=== PATIENT | female | born 1960 | race Caucasian/White ===

== ENCOUNTER 2025-06-30 18:49 | Inpatient (IN) | payer MEDICARE, OTHER, SELFPAY ==
[2025-06-30] VITALS (22 sets, daily range): BP systolic 69–123; BP diastolic 23–73; BMI 23.4; BMI 24.3
--- NOTE | 2025-06-30 14:19 | EDRN ---
Ru PINO in room w/ pt.
--- NOTE | 2025-06-30 14:25 | ED.GENMED ---
History of Present Illness
<Cuong Berrios PA-C - Last Filed: 06/30/25 21:24>
General
Chief Complaint: Blood Pressure Problem
Time Seen by Provider: 06/30/25 14:17
History of Present Illness
History of Present Illness:
64-year-old female with history of breast cancer currently on chemo and radiation treatments presents to the emergency department for evaluation of intractable nausea vomiting and diarrhea beginning last night associated with hypotension. Patient
arrived for her radiation appointment this morning where she was noted to be hypotensive and lethargic and thus sent to the ED. She has had intermittent vomiting and diarrhea during her chemo sessions typically controlled with Zofran, her last
chemo session was last week. She denies any abdominal pain or fevers at this time. No hematemesis or hematochezia.
Past History
<Cuong Berrios PA-C - Last Filed: 06/30/25 21:24>
Past History
ED Past Medical History: Cancer, HTN, Other and Other
ED Past Surgical History: and Other
Social History
Tobacco: Non-smoker
Alcohol: Occasional
Personal:
Living: with family
Employment: Disabled
Family History
Family History: Other (brother w/ stroke and early demise)
Review of Systems
<Cuong Berrios PA-C - Last Filed: 06/30/25 21:24>
Review of Systems
Allergies reviewed?: Yes
All Other Systems: ROS reviewed and negative except as documented in HPI and ROS
Phy Exam
<EV Fuentes Last Filed: 06/30/25 21:24>
Physical Exam
Physical Exam:
GEN: Chronically ill-appearing, no distress
HEENT: Oral mucosa moist, no scleral icterus
Cardiac: Regular rate
Lung: No respiratory distress, no tachypnea
Abdomen: Soft, grossly nontender
MSK: No gross deformity or injuries
Skin: Good color, no pallor or jaundice, no rashes
Neuro: AO x3, moves all extremities freely
Psych: Calm, cooperative
Course
<Cuong Berrios PA-C - Last Filed: 06/30/25 21:24>
Orders/Labs/Results
Orders:
Orders
06/30/25 Breakfast
Clear Liquid
At Your Request: Full Participation
06/30/25 14:23
0.9% Sodium Chloride 1000 ml [Nss] 1,000 ml IV BOLUS
Ondansetron Injectable [Zofran] 4 mg IV NOW STA
06/30/25 14:37
COVID-19 Antigen Urgent
Source: Nasal Swab
Influenza A+B Rapid Molecular Urgent
AURELIANO Source: Nasal Swab
Specimen Description:
06/30/25 14:45
Complete Blood Count/With Diff Urgent
Comprehensive Metabolic Panel Urgent
Ferritin Urgent
Comment: ADD ON
Folate Urgent
Comment: ADD ON
Iron Urgent
Comment: ADD ON
Lipase Urgent
Manual Differential Urgent
Total Iron Binding Urgent
Comment: ADD ON
Vitamin B12 Urgent
Comment: ADD ON
06/30/25 16:30
0.9% Sodium Chloride 1000 ml [Nss] 1,000 ml IV BOLUS
06/30/25 17:35
Midodrine [ProAmatine] 5 mg PO NOW STA
06/30/25 17:36
Lactated Ringers [Lr] 500 ml IV 150 mls/hr
06/30/25 18:03
Norovirus by PCR Urgent
AURELIANO Source: Feces/Stool
Specimen Description:
Date Specimen was Collected: 07/01/25
Time Specimen was Collected: 10:38
STOOL [C difficile Antigen & Toxins] Urgent
AURELIANO Source: Feces/Stool
Specimen Description:
Date Specimen was Collected: 07/01/25
Time Specimen was Collected: 10:38
Stool Culture Urgent
AURELIANO Source: Feces/Stool
Specimen Description:
Date Specimen was Collected: 07/01/25
Time Specimen was Collected: 10:38
06/30/25 18:04
Admit/Transfer Patient As Directed
Co-Sign Provider:
Level of Care: Inpatient admission
Assign to:: Telemetry
Physician / Group: Htay
Diagnosis: Vomting/Diarrhea, Hypotension
Reason for Telemetry: Arrhythmia
Date to Stop Telemetry: 07/03/25
Time to Stop Telemetry: 11:00
Reason for Hospitalization: IVF
Expected length of stay greater than two midnights?: Yes
ELOS- Estimated Length of Stay in days: 3
I certify the patient meets the requirements for IP care: Yes
PRN Pain Medication Management As Directed
May give lesser potent ordered pain med per pt: Yes
preference::
Protocol:: Medication orders for pain may be administered in a
manner that supports deferring to patient preference
when the pt is:
- Requesting an ordered lesser potent pain medication.
Least to most potent pain medications are defined
as: acetaminophen < NSAID < tramadol < opioids
(morphine, oxycodone, hydromorphone).
- Requesting a lesser dose of the same medication IF
ORDERED.
- Requesting a less intrusive route of administration
if both routes are prescribed by the provider (PO <
IV).
06/30/25 18:05
Code Status As Directed
Resuscitation Status: Full Code
06/30/25 18:11
Add On- LAB Routine
Tests Added?: iron, ferritin, tibc, folate, vit b12
06/30/25 20:09
0.9% Sodium Chloride 1000 ml [Nss] 1,000 ml IV 100 mls/hr
Acetaminophen [Tylenol] 650 mg PO Q4HPRN PRN
Midodrine [ProAmatine] 5 mg PO Q4HPRN PRN
Ondansetron Injectable [Zofran] 4 mg IV Q6HPRN PRN
06/30/25 20:09
Activity As Directed
Activity Level: Out of Bed- Chair
With Assistance
Advance Diet as Tolerated As Directed
Goal Diet: Low Residue
I&O [Intake/ Output] As Directed
Frequency: q12h
Vital Signs As Directed
Frequency: q4h
DX Deep Vein Thrombosis Video Routine
07/01/25 06:05
Basic Metabolic Panel IN AM
Complete Blood Count/No Diff IN AM
Magnesium IN AM
07/01/25 18:00
Enoxaparin Sodium [Lovenox] 40 mg SC QPM
Abnormal Lab Results
06/30/25
14:45
RBC 2.75 L 10^6/uL
(4.20-5.40)
Hgb 9.3 L g/dL
(12.0-16.0)
Hct 27.8 L %
(37.0-47.0)
MCV 101.1 H fL
(81.0-99.0)
MCH 33.8 H pg
(27.0-31.0)
RDW 16.2 H %
(11.5-14.5)
Abs Immat Gran (auto) 1.0 H 10^3/uL
(0-0.05)
Absolute Lymphs (auto) 1.0 L 10^3/uL
(1.2-3.4)
Absolute Monos (auto) 1.0 H 10^3/uL
(0.1-0.6)
Immature Gran % 20.8 H %
(0-0.5)
Monocytes % 20.4 H %
(1.7-9.3)
Segmented Neutrophils 26 L %
(42-75)
Band Neutrophils 7 H %
(0-3)
Monocytes (Manual) 27 H %
(2-9)
Sodium 131 L mmol/L
(135-145)
TIBC 196 L ug/dl
(265-497)
Ferritin 632.0 H ng/ml
(11.1-264.0)
Total Protein 5.9 L g/dl
(6.3-8.2)
Albumin 3.3 L g/dl
(3.5-5.0)
Vitamin B12 > 1000 H pg/ml
(239-931)
06/30/25 14:45
06/30/25 14:45
Vital Signs
Initial and Last Documented VS:
Initial Vital Signs
Temp Pulse Resp BP Pulse Ox
98.3 F 95 18 81/45 99
06/30/25 14:20 06/30/25 14:20 06/30/25 14:20 06/30/25 14:20 06/30/25 14:20
Last Documented Vital Signs
Temp Pulse Resp BP Pulse Ox
98.1 F 94 16 97/49 94
07/01/25 11:22 07/01/25 11:22 07/01/25 11:22 07/01/25 11:22 07/01/25 11:22
<José Luis Ames MD - Last Filed: 07/01/25 13:19>
Orders/Labs/Results
Orders:
Orders
06/30/25 Breakfast
Clear Liquid
At Your Request: Full Participation
06/30/25 14:23
0.9% Sodium Chloride 1000 ml [Nss] 1,000 ml IV BOLUS
Ondansetron Injectable [Zofran] 4 mg IV NOW STA
06/30/25 14:37
COVID-19 Antigen Urgent
Source: Nasal Swab
Influenza A+B Rapid Molecular Urgent
AURELIANO Source: Nasal Swab
Specimen Description:
06/30/25 14:45
Complete Blood Count/With Diff Urgent
Comprehensive Metabolic Panel Urgent
Ferritin Urgent
Comment: ADD ON
Folate Urgent
Comment: ADD ON
Iron Urgent
Comment: ADD ON
Lipase Urgent
Manual Differential Urgent
Total Iron Binding Urgent
Comment: ADD ON
Vitamin B12 Urgent
Comment: ADD ON
06/30/25 16:30
0.9% Sodium Chloride 1000 ml [Nss] 1,000 ml IV BOLUS
06/30/25 17:35
Midodrine [ProAmatine] 5 mg PO NOW STA
06/30/25 17:36
Lactated Ringers [Lr] 500 ml IV 150 mls/hr
06/30/25 18:03
Norovirus by PCR Urgent
AURELIANO Source: Feces/Stool
Specimen Description:
Date Specimen was Collected: 07/01/25
Time Specimen was Collected: 10:38
STOOL [C difficile Antigen & Toxins] Urgent
AURELIANO Source: Feces/Stool
Specimen Description:
Date Specimen was Collected: 07/01/25
Time Specimen was Collected: 10:38
Stool Culture Urgent
AURELIANO Source: Feces/Stool
Specimen Description:
Date Specimen was Collected: 07/01/25
Time Specimen was Collected: 10:38
06/30/25 18:04
Admit/Transfer Patient As Directed
Co-Sign Provider:
Level of Care: Inpatient admission
Assign to:: Telemetry
Physician / Group: Htay
Diagnosis: Vomting/Diarrhea, Hypotension
Reason for Telemetry: Arrhythmia
Date to Stop Telemetry: 07/03/25
Time to Stop Telemetry: 11:00
Reason for Hospitalization: IVF
Expected length of stay greater than two midnights?: Yes
ELOS- Estimated Length of Stay in days: 3
I certify the patient meets the requirements for IP care: Yes
PRN Pain Medication Management As Directed
May give lesser potent ordered pain med per pt: Yes
preference::
Protocol:: Medication orders for pain may be administered in a
manner that supports deferring to patient preference
when the pt is:
- Requesting an ordered lesser potent pain medication.
Least to most potent pain medications are defined
as: acetaminophen < NSAID < tramadol < opioids
(morphine, oxycodone, hydromorphone).
- Requesting a lesser dose of the same medication IF
ORDERED.
- Requesting a less intrusive route of administration
if both routes are prescribed by the provider (PO <
IV).
06/30/25 18:05
Code Status As Directed
Resuscitation Status: Full Code
06/30/25 18:11
Add On- LAB Routine
Tests Added?: iron, ferritin, tibc, folate, vit b12
06/30/25 20:09
0.9% Sodium Chloride 1000 ml [Nss] 1,000 ml IV 100 mls/hr
Acetaminophen [Tylenol] 650 mg PO Q4HPRN PRN
Midodrine [ProAmatine] 5 mg PO Q4HPRN PRN
Ondansetron Injectable [Zofran] 4 mg IV Q6HPRN PRN
06/30/25 20:09
Activity As Directed
Activity Level: Out of Bed- Chair
With Assistance
Advance Diet as Tolerated As Directed
Goal Diet: Low Residue
I&O [Intake/ Output] As Directed
Frequency: q12h
Vital Signs As Directed
Frequency: q4h
DX Deep Vein Thrombosis Video Routine
07/01/25 06:05
Basic Metabolic Panel IN AM
Complete Blood Count/No Diff IN AM
Magnesium IN AM
07/01/25 18:00
Enoxaparin Sodium [Lovenox] 40 mg SC QPM
Abnormal Lab Results
06/30/25
14:45
RBC 2.75 L 10^6/uL
(4.20-5.40)
Hgb 9.3 L g/dL
(12.0-16.0)
Hct 27.8 L %
(37.0-47.0)
MCV 101.1 H fL
(81.0-99.0)
MCH 33.8 H pg
(27.0-31.0)
RDW 16.2 H %
(11.5-14.5)
Abs Immat Gran (auto) 1.0 H 10^3/uL
(0-0.05)
Absolute Lymphs (auto) 1.0 L 10^3/uL
(1.2-3.4)
Absolute Monos (auto) 1.0 H 10^3/uL
(0.1-0.6)
Immature Gran % 20.8 H %
(0-0.5)
Monocytes % 20.4 H %
(1.7-9.3)
Segmented Neutrophils 26 L %
(42-75)
Band Neutrophils 7 H %
(0-3)
Monocytes (Manual) 27 H %
(2-9)
Sodium 131 L mmol/L
(135-145)
TIBC 196 L ug/dl
(265-497)
Ferritin 632.0 H ng/ml
(11.1-264.0)
Total Protein 5.9 L g/dl
(6.3-8.2)
Albumin 3.3 L g/dl
(3.5-5.0)
Vitamin B12 > 1000 H pg/ml
(276-931)
06/30/25 14:45
06/30/25 14:45
Vital Signs
Initial and Last Documented VS:
Initial Vital Signs
Temp Pulse Resp BP Pulse Ox
98.3 F 95 18 81/45 99
06/30/25 14:20 06/30/25 14:20 06/30/25 14:20 06/30/25 14:20 06/30/25 14:20
Last Documented Vital Signs
Temp Pulse Resp BP Pulse Ox
98.1 F 94 16 97/49 94
07/01/25 11:22 07/01/25 11:22 07/01/25 11:22 07/01/25 11:22 07/01/25 11:22
<Cuong Berrios PA-C - Last Filed: 06/30/25 21:24>
MDM/Problems Addressed
MDM/Problems Addressed:
Due to persistent hypotension patient will be admitted to the hospital, do not feel vasopressors IV are needed at this time and will begin midodrine
<Cuong Berrios PA-C - Last Filed: 06/30/25 21:24>
*Pulse Oximetry
Patient hypoxic: no
*Critical Care Note
Total Time (30-74mins, 75-104mins- exclusive of procedures): Not Applicable
ED Attending Note
<Cuong Berrios PA-C - Last Filed: 06/30/25 21:24>
-
Portions of this chart may have been created with voice recognition software.� Occasional wrong word or��sound alike� substitutions may have occurred due to the inherent limitations of voice recognition software.
<José Luis Ames MD - Last Filed: 07/01/25 13:19>
ED Attending Note
Patient seen and examined by attending physician: Yes
ED Attending Note:
Patient with history of breast cancer, status post last chemo treatment 1 week ago, presents ED secondary to multiple episodes of vomiting and diarrhea over the past 24 hours, along with dizziness, weakness, and confusion. Patient denies fever or
chills. Denies coughing. Denies abdominal pain. Denies chest pain. Patient does report decreased appetite. Patient has had weight loss recently. Denies headache. Denies loss of sensation or weakness.
Physical Exam
General: mild distress, not acutely ill. afebrile. weak appearing. hypotensive
Head: nc/at. eomi
Neck: supple. normal range of motion
Heart: s1/s2 regular rate and rhythm
Lungs: no acute respiratory distress. clear bilaterally
Abdomen: normal bowel sounds. not tender.
Neuro: alert and oriented x 3. no focal neurological deficits
Skin: no rash
Psychiatric: well kept. interactive and cooperative
Extremities: no edema. no calf tenderness.
Patient with persistent hypotension despite multiple boluses of IV fluids. In light of patient's ongoing symptoms along with hypotension despite treatment, patient will be admitted for further evaluation and treatment, including continual IV
hydration.
Discharge Plan
Departure
Patient Disposition: Admit
Date of Disposition: 06/30/25
Time of Disposition: 17:37
Admit to: IMU
Presentation/result/management discussed w/ accepting MD/DO: Hospitalist
Discharge Problem:
Acute hypotension
Interventions
Interventions:
*General Assessment Last Done: 06/30/25 18:57
*Neglect/Abuse Screening Last Done: 06/30/25 14:20
*ED COVID-19 Vaccine History Last Done: 07/01/25 01:40
*ED Influenza Vaccine History Last Done: 06/30/25 14:20
[facility] Risk Assessment Tool Last Done: 06/30/25 14:32
*Risk Screen - Suicide (C-SSRS) Last Done: 06/30/25 14:20
*Nursing Disposition Last Done: 06/30/25 20:01
ED- Cardiac Assessment Last Done: 06/30/25 14:40
ED- Neurological Assessment Last Done: 06/30/25 14:40
ED- Pulmonary Assessment Last Done: 06/30/25 14:40
Discharge Date and Time
Discharge Date/Time: 06/30/25 20:11
[2025-06-30] MEDS: NSS 1000 IV ×3 (14:46→21:36)
[2025-06-30] MEDS: ZOFRAN 4 MG IV (14:53)
[2025-06-30 14:58] LABS: Hematocrit 27.8 % (37.0-47.0); Hemoglobin 9.3 g/dL (12.0-16.0); Mean Corp Hgb Conc. 33.5 g/dL (33.0-37.0); Mean Corpuscular Volume 101.1 fL (81.0-99.0); Nucleated Red Blood Cells % 0.8 %; Platelet Count 151 10^3/uL (130-400); Red Cell Dist. Width 16.2 % (11.5-14.5)
[2025-06-30 15:04] LABS: COVID-19 Antigen Negative (Negative)
[2025-06-30 15:10] LABS: ALT (SGPT) 27 U/L (0-35); AST (SGOT) 21 U/L (14-36); Albumin 3.3 g/dl (3.5-5.0); Alkaline Phosphatase 124 U/L (38-126); Blood Urea Nitrogen 12 mg/dl (7-17); Calcium 8.8 mg/dl (8.4-10.2); Carbon Dioxide 27 mmol/L (22-30); Chloride 99 mmol/L (98-107); Estimated Creatinine Clearance 55 ml/min; Glucose 97 mg/dl (70-99); Lipase 23 U/L (23-300); Potassium 3.7 mmol/L (3.5-5.1); Sodium 131 mmol/L (135-145); Total Protein 5.9 g/dl (6.3-8.2); eGFR > 60.00
--- NOTE | 2025-06-30 15:24 | EDRN ---
Ru PINO in room w/pt.
--- NOTE | 2025-06-30 15:27 | EDRN ---
ED VAT EMILY Mo was just TT'd about IV access as was just noted as infiltrated.
--- NOTE | 2025-06-30 15:37 | EDRN ---
Chely SIMMONS VAT RN down and restarted IV access at this time in L FA w/ IV fluids restarted at this time. Pt stated no lymph nodes removed on R side so BP on R at this time. Pt also stated only partial mastectomy/lumpectomy on her R side.
[2025-06-30 16:26] LABS: Total Cells Counted 100
[2025-06-30 16:27] LABS: Absolute Neutrophils -Man Diff 1.6 10^3/uL (1.4-6.5); Anisocytosis 1+; Macrocytosis 1+; Normal RBC Morphology No; Platelets Checked Yes; Polychromasia 1+; Stomatocytes 2+
--- NOTE | 2025-06-30 17:44 | EDRN ---
Dr. Ames was in to see pt.
--- NOTE | 2025-06-30 17:47 | HPS.HSE ---
Family Physician
-
Family Physician: INTERVIEWE UNKNOWN - PT NOT
Chief Complaint
-
Vomiting and Diarrhea with Low Blood Pressure
History of Present Illness
Patient is a 64 y/o female past medical history of breast cancer who presents with vomiting, diarrhea and low blood pressure. Patient reports acute onset of vomiting and diarrhea that began last night. She reports symptoms were nonstop for several
hours. Today she had a radiation mapping appointment and while driving here she noted she felt confused. Upon arrival she states she was unable to stand the desk to check in and had to sit down. She reports feeling lightheaded. She denies
hematemesis or hematochezia.
Medical History
Past Medical History
Past Medical History: Reports Other
Additional Past Medical History:
Breast Cancer
Pulmonary Embolism
Hyperlipidemia
Migraine Headaches
Nephrolithiasis
Past Surgical History: Reports Other
Additional Past Surgical History:
Bilateral Lumpectomy (Left September 2015, Right Feb 2025)
Left Hand Reconstruction
Right Foot ORIF
Cystoscopy / Stone Extraction
Section
Sinus Surgery
Social History
Tobacco: Non-smoker
Alcohol: None
Family History
Family History: Other (Mother, Father and Brother with Lung Cancer)
Allergies / Home Medications
Allergies reflects when Allergies were last updated in [facility].
Home Medications with original date entered in [facility]
Allergy/Medication List:
Allergies
Allergy/AdvReac Type Severity Reaction Status Date / Time
Penicillins Allergy Unknown Verified 09/10/18 16:28
prochlorperazine (From Allergy Tongue Verified 09/10/18 16:28
Compazine) Swelling
prochlorperazine edisylate Allergy Unknown Verified 09/10/18 16:28
(From Compazine)
prochlorperazine maleate Allergy Unknown Verified 09/10/18 16:28
(From Compazine)
Sulfa (Sulfonamide Allergy Hives Verified 09/10/18 16:28
Antibiotics)
Home Medications
Miralax 2 tab PO DAILYPRN PRN constipation 06/30/25
atorvastatin 40 mg tablet 40 mg PO DAILY 06/30/25
diphenhydramine 25 mg-acetaminophen 500 mg tablet (Tylenol PM Extra Strength) 2 tab PO HS PRN sleep 06/30/25
diphenoxylate-atropine 2.5 mg-0.025 mg tablet 1 tab PO Q6HPRN PRN diarrhea 06/30/25
lorazepam 0.5 mg tablet 0.5 mg PO DAILY PRN anxiety 06/30/25
omeprazole 40 mg capsule,delayed release 40 mg PO DAILY 06/30/25
ondansetron HCl 8 mg tablet 8 mg PO Q8H PRN nausea/vomiting 06/30/25
Review of Systems
-
A 12 point ROS was completed and negative except as noted: Yes
Constitutional: Denies Fever
Respiratory: Denies Cough or Trouble Breathing
Cardiac: Denies Chest Pain
Physical Exam
Vital Signs
Vital Signs
Temp Pulse Resp BP Pulse Ox
98.3 F 94 19 96/73 93
06/30/25 14:20 06/30/25 17:45 06/30/25 17:45 06/30/25 17:40 06/30/25 17:45
Physical Exam
General: Comfortable and Conversant
HEENT: Anicteric and Moist mucous membranes
Respiratory: Clear and Non Labored Respirations
Cardiac: S1/S2 and Regular Rhythm
GI: Soft and Tender (Mild throughout without rebound or guarding)
Rectal: Deferred by Provider
Musculoskeletal: No Clubbing and No Cyanosis
Skin: Warm and Dry
Neuro: Awake, Alert, Oriented and Nonfocal/grossly intact
Psych: Calm
Laboratory Results
-
06/30/25 14:45
06/30/25 14:45
Laboratory Results
Total Bilirubin 1.3 mg/dl (0.2-1.3) 06/30/25 14:45
AST 21 U/L (14-36) 06/30/25 14:45
ALT 27 U/L (0-35) 06/30/25 14:45
Alkaline Phosphatase 124 U/L (38-126) 06/30/25 14:45
Lipase 23 U/L (23-300) 06/30/25 14:45
Data Reviewed
-
Lab Data: Labs Reviewed by me
Impression/Plan
-
Hypotension secondary to GI losses
-Continue IVFs
-Patient given one dose of midodrine in ED for hypotension, will continue PRN
Vomiting / Diarrhea, suspect related to chemotherapy vs viral gastroenteritis
-Allow clear liquids
-Check stool studies
Breast Cancer
-Initial diagnosis 2015 s/p left lumpectomy, chemotherapy and radiation
-Recent diagnosis Feb 2025 s/p right lumpectomy, currently receiving chemotherapy and scheduled to start radiation
-Last chemotherapy Jun 23
Macrocytic Anemia, likely chemo related
-Check iron, ferritin, TIBC and folic acid
Hyperlipidemia
-Continue atorvastatin
DVT proph: Lovenox
Code Status: Full Code
[2025-06-30] MEDS: LR 500 IV (17:55)
--- NOTE | 2025-06-30 17:55 | EDRN ---
Nellie Bates PA in to see pt at this time.
[2025-06-30 18:33] LABS: Iron 70 ug/dl (37-170)
--- NOTE | 2025-06-30 18:37 | W.PN.UPDATE ---
Update Note
Progress Note Update
This note serves as an addendum to the H&P by feller operator Halley MORRIS
HPI
64 F HX breast cancer
pw vomiting, diarrhea and low blood pressure
- acute onset of vomiting and diarrhea that began last night and persistent
- Today she had a radiation mapping appointment and while driving here she noted she felt confused.
- Upon arrival she states she was unable to stand the desk to check in and had to sit down.
- reports feeling lightheaded.
- denies hematemesis or hematochezia.
PHX
Breast Cancer s/p Bilateral Lumpectomy (Left September 2015, Right Feb 2025)
Pulmonary Embolism
Migraine Headaches
Nephrolithiasis
Left Hand Reconstruction
Right Foot ORIF
Cystoscopy / Stone Extraction
Section
Relevant VS
Temp Pulse Resp BP Pulse Ox
98.3 F 96 18 118/54 96
06/30/25 14:20 06/30/25 18:20 06/30/25 18:20 06/30/25 18:20 06/30/25 18:20
PE
Gen: Not toxic
HEENT: anicteric
Neck: supple
Lungs: CTA
Cor: RRR S1 S2
Abdomen:�Soft and Tender mild throughout without rebound or guarding
COMMUNITY ARTIST: NFND
MS:no edema
Relevant Data
06/30/25
14:45
WBC 5.0
Hgb 9.3 L
Plt Count 151
Sodium 131 L
Creatinine 0.8
eGFR > 60.00
ASSESSMENT & PLAN
Hypotension due to vol, contraction dehydration due to acute GI losses s/p chemo
- supportive care with IVF
- one dose of midodrine in ED for hypotension, will continue PRN
Vomiting / Diarrhea, suspect related to chemotherapy vs viral gastroenteritis
- Check stool studies
- Clear and ADAT
Breast Cancer HX
-Initial diagnosis 2015 s/p left lumpectomy, chemotherapy and radiation
-Recent diagnosis Feb 2025 s/p right lumpectomy, currently receiving chemotherapy and scheduled to start radiation
-Last chemotherapy Jun 23
DVT LMWH Px:
Code: Full
IP MS
[2025-06-30 18:42] LABS: Total Iron Binding Capacity 196 ug/dl (265-497)
[2025-06-30 19:06] LABS: Ferritin 632.0 ng/ml (11.1-264.0)
[2025-06-30 19:37] LABS: Folate 3.8 ng/ml (2.76-20); Vitamin B12 > 1000 pg/ml (239-931)
[2025-06-30] MEDS: KCL 160 MEQ IV (19:49)
[2025-06-30 20:24] LABS: Magnesium 1.7 mg/dl (1.6-2.3); Potassium 3.7 mmol/L (3.5-5.1)
[2025-06-30] MEDS: TYLENOL 650 MG PO (20:40)
[2025-06-30] MEDS: ATIVAN 0.5 MG PO (21:47)
[2025-07-01] MEDS: TYLENOL 650 MG PO (06:22)
[2025-07-01] MEDS: NSS 1000 IV (06:22)
[2025-07-01 06:29] LABS: Hematocrit 24.4 % (37.0-47.0); Hemoglobin 8.2 g/dL (12.0-16.0); Mean Corp Hgb Conc. 33.6 g/dL (33.0-37.0); Mean Corpuscular Volume 103.0 fL (81.0-99.0); Platelet Count 170 10^3/uL (130-400); Red Cell Dist. Width 16.6 % (11.5-14.5)
[2025-07-01 07:00] VITALS: BP 82/37
[2025-07-01 07:12] LABS: Blood Urea Nitrogen 11 mg/dl (7-17); Calcium 7.7 mg/dl (8.4-10.2); Carbon Dioxide 18 mmol/L (22-30); Chloride 108 mmol/L (98-107); Estimated Creatinine Clearance 73 ml/min; Glucose 38 mg/dl (70-99); Magnesium 1.7 mg/dl (1.6-2.3); Potassium 3.8 mmol/L (3.5-5.1); Sodium 134 mmol/L (135-145); eGFR > 60.00
[2025-07-01 07:16] LABS: Glucose - Point of Care 44 mg/dl (70-99)
[2025-07-01 07:35] LABS: Glucose - Point of Care 48 mg/dl (70-99)
[2025-07-01] MEDS: LIPITOR 40 MG PO (07:47)
[2025-07-01 07:53] LABS: Glucose - Point of Care 56 mg/dl (70-99)
[2025-07-01 08:14] LABS: Glucose - Point of Care 74 mg/dl (70-99)
[2025-07-01 11:22] VITALS: BP 97/49
[2025-07-01 11:34] LABS: Glucose - Point of Care 156 mg/dl (70-99)
--- NOTE | 2025-07-01 13:21 | W.DCSUMMARY ---
Discharge Summary
Discharge Data
Date of Admission: 06/30/25
Date of Discharge: 07/01/25
-
Pending Results: No
Hospital Course
64 y/o female past medical history of breast cancer
Presented with vomiting diarrhea low blood pressure. Likely developed enteritis and hypotension likely secondary to GI losses. Vomiting has since resolved since admission. Blood pressure improving on IV fluids. Diarrhea chronic. Likely has
chronic hypotension as well therefore will discharge on as needed midodrine for SBP of less than 100. Will need outpatient follow-up with PCP radiation oncology and oncology.
Seen and examined on the day of discharge. No new complaints. No acute overnight events.
NAD
Scleral Anicteric
MMM
No JVD
CTABL
RRR, S1/S2
Soft, NT, ND, BS+
Warm, Dry
AAOx3
Calm
More than 30 minutes spent in discharge including
Final examination of the patient
Summarizing hospital stay
Instructions for continuing care to all relevant caregivers
Preparation of discharge records, prescriptions, and referral forms
Total time spent (in minutes): 33mins
Discharge Plan
-
Patient Disposition: Home with Home Care
Discharge Diagnosis/Procedures: Hypotension
Hypotension secondary to GI losses
Vomiting diarrhea
Breast cancer
Condition: Good
Diet: As tolerated, Low Fat, Low Cholesterol, Low Fiber and No added salt
Activity Restrictions/Additional Instructions:
Presented with vomiting diarrhea low blood pressure. Likely developed enteritis and hypotension likely secondary to GI losses. Vomiting has since resolved since admission. Blood pressure improving on IV fluids. Diarrhea chronic. Likely has
chronic hypotension as well therefore will discharge on as needed midodrine for SBP of less than 100. Will need outpatient follow-up with PCP radiation oncology and oncology.
Referrals:
UNKNOWN - PT NOT,INTERVIEWE [Family Provider]
Prescriptions:
New
midodrine 5 mg Tablet
2.5 mg PO TIDPRN PRN (Reason: SBP Less Than 100) Qty: 14 0RF
Continued
atorvastatin 40 mg Tablet
40 mg PO DAILY
ondansetron HCl 8 mg Tablet
8 mg PO Q8H PRN (Reason: nausea/vomiting)
diphenoxylate-atropine 2.5-0.025 mg Tablet
1 tab PO Q6HPRN PRN (Reason: diarrhea)
omeprazole 40 mg Capsule,Delayed Release(Dr/Ec)
40 mg PO DAILY
lorazepam 0.5 mg Tablet
0.5 mg PO DAILY PRN (Reason: anxiety)
diphenhydramine-acetaminophen [Tylenol PM Extra Strength] 25-500 mg Tablet
2 tab PO HS PRN (Reason: sleep)
Miralax
2 tab PO DAILYPRN PRN (Reason: constipation)
Patient Comments:
06/30/2025, chewable tablets.
Discharge Orders:
Discharge Patient (As Directed); Ordered 07/01/25
Ordered By: Dharmesh Hopkins
Discharge Date and Time
Print Language: MALIAN
[2025-07-01 13:23] VITALS: BMI 24.3
--- NOTE | 2025-07-01 14:24 | CM ---
CM spoke with Chelsea who is interested in VN services. She has not had VN services previously. Pt lives at [facility].
Patient chose [facility] for services. Cristiane Prado is aware and will meet with Chelesa prior to discharge to discuss VN services.
Plan: Discharge to home with [facility]
[2025-07-01 14:25] VITALS: BP 112/57
--- NOTE | 2025-07-01 14:32 | VNURNOTE ---
Chart reviewed. Unable to meet with patient due to her actively being picked up for DC. Spoke to pt over phone and obtained confirmation from pt of her PCP and that she is agreeable to [facility]. She is aware that [facility] will contact her within a
week for start of care visit.
Referral placed in [facility].
== END 2025-07-01 14:42 | disposition home health service (06) | DRG 392 ==
LOC: 3 WEST ACU 18:49
PROVIDERS: Physician Assistant; Physician Assistant Medical; ADMITTING PHYSICIAN Internal Medicine; ATTENDING PHYSICIAN Hospitalist; EMERGENCY PHYSICIAN Emergency Medicine
DX: K52.9 Noninfective gastroenteritis and colitis, unspecified (principal); E78.5 Hyperlipidemia, unspecified; G43.909 Migraine, unspecified, not intractable, without status migrainosus; D53.9 Nutritional anemia, unspecified; C50.911 Malignant neoplasm of unspecified site of right female breast; I95.89 Other hypotension; E86.0 Dehydration; I10 Essential (primary) hypertension; T45.1X5A Adverse effect of antineoplastic and immunosuppressive drugs, initial encounter; Z11.52 Encounter for screening for COVID-19; Z79.899 Other long term (current) drug therapy; Z85.3 Personal history of malignant neoplasm of breast; Z86.711 Personal history of pulmonary embolism; Z87.442 Personal history of urinary calculi
CPT/HCPCS: 80048; 80053; 82607; 82728; 82746; 82962; 83540; 83550; 83690; 83735; 84132; 85025; 85027; 87045; 87046; 87324; 87427; 87449; 87502; 87798; 87811; 99285